=== PATIENT | female | born 1990 | race Caucasian/White ===

== ENCOUNTER 2017-10-29 17:51 | Emergency (ER) | payer OTHER ==
[~2017-10-29] VITALS: Ht 167.6 cm; Wt 54.4 kg
[~2017-10-29 17:51] MED LIST: ANTIVERT25 MG PO; CEPHALEXIN 500500 M3 PO; CIPRO500 MG PO; GLYCOPYRROLATE; HYDROCODON-ACE1 EAC7 PO; KEFLEX500 MG PO; MACROBID 100 M100 M1 PO; MEDROLDOSEPACK PO; NASONEX17 GM NASAL; NOHOMEMEDICATIONS; ONDANSETRON HCL4 M2 PO; PREDNISONE 10 M10 M1 PO; ROBAXIN500 MG PO; TRAMADOL 50 MG50 MG PO; ULTRAM 50MG TAB50 MG PO; ZOFRAN ODT4 MG PO; ZOFRAN4 MG PO; [UNRECOGNIZED DRUG - OTHER]; [UNRECOGNIZED DRUG - OTHER] PO
[2017-10-29 18:03] LABS: URINE BILIRUBIN NEGATIVE (Negative); URINE BLOOD NEGATIVE (Negative); URINE CLARITY CLEAR; URINE COLOR YELLOW; URINE GLUCOSE-RANDOM NEGATIVE (Negative); URINE KETONES NEGATIVE (Negative); URINE LEUKOCYTES-REFLEX NEGATIVE (Negative); URINE NITRITE-REFLEX NEGATIVE (Negative); URINE PROTEIN NEGATIVE (Negative); URINE SPECIFIC GRAVITY >= 1.030 (1.005-1.030)
[2017-10-29] MEDS ORDERED: CELEXA10 MG PO (18:03)
[2017-10-29 18:25] LABS: ABSOLUTE LYMPHOCYTES 1.8 thou/uL (0.8-5.3); ABSOLUTE MONOCYTES 0.5 thou/uL (0.0-1.2); ABSOLUTE NEUTROPHILS 2.8 thou/uL (1.6-8.1); BASOPHILS 0.2 %; EOSINOPHILS 0.4 %; HEMATOCRIT 38.9 % (37.0-47.0); LYMPHOCYTES 35.2 %; MCHC 33.3 g/dL (28.0-37.0); MCV 93.1 fL (80.0-100.0); MONOCYTES 9.3 %; MPV 8.8 fl. (7.2-11.1); NUCLEATED RBCS 0 /100WBC; PLATELET COUNT* 181 thou/uL (150-400); POLYS 54.9 %; RBC 4.18 mil/uL (4.20-5.00); RDW-CV 13.3 % (10.5-14.5); WBC 5.1 thou/uL (4.0-11.0)
[2017-10-29 18:33] LABS: CALCIUM 8.4 mg/dL (8.5-10.1); CREATININE 0.7 mg/dL (0.6-1.3); POTASSIUM 3.8 mmol/L (3.5-5.1)
[2017-10-29 18:37] LABS: ALBUMIN 3.7 g/dL (3.4-5.0); TOTAL BILIRUBIN 0.7 mg/dL (<0.1-1.0); TOTAL PROTEIN 7.6 g/dL (6.4-8.2)
[2017-10-29] MEDS ORDERED: ZOFRAN4 MG PO (19:43)
[2017-10-29] MEDS ORDERED: BENTYL 20 MG TA20 M1 PO (19:43)
[2017-10-29 19:53] VITALS: BP 110/67
== END 2017-10-29 19:54 | disposition home or self-care (01) ==
LOC: M.ERS 17:51
PROVIDERS: Nurse Practitioner Family
DX: R10.13 Epigastric pain (principal); G43.909 Migraine, unspecified, not intractable, without status migrainosus; Z88.6 Allergy status to analgesic agent; Z88.0 Allergy status to penicillin; Z88.5 Allergy status to narcotic agent; Z91.018 Allergy to other foods

== ENCOUNTER 2018-08-13 21:18 | Emergency (ER) | payer OTHER ==
[~2018-08-13] VITALS: Ht 167.6 cm; Wt 56.2 kg
[~2018-08-13 21:18] MED LIST changes: +BENTYL 20 MG TA20 M1 PO; +CELEXA10 MG PO
[2018-08-13] MEDS ORDERED: TRAMADOL 50 MG50 MG PO (21:35)
[2018-08-13 21:58] LABS: ABSOLUTE EOSINOPHILS 0.1 thou/uL (0.0-0.7); ABSOLUTE LYMPHOCYTES 2.1 thou/uL (0.8-5.3); ABSOLUTE MONOCYTES 0.4 thou/uL (0.0-1.2); ABSOLUTE NEUTROPHILS 3.3 thou/uL (1.6-8.1); BASOPHILS 0.2 %; HEMATOCRIT 39.6 % (37.0-47.0); LYMPHOCYTES 36.1 %; MCH 30.2 pg (26.0-34.0); MCHC 32.7 g/dL (28.0-37.0); MCV 92.1 fL (80.0-100.0); MPV 9.9 fl. (7.2-11.1); NUCLEATED RBCS 0 /100WBC; PLATELET COUNT* 183 thou/uL (150-400); POLYS 55.7 %; WBC 5.9 thou/uL (4.0-11.0)
[2018-08-13 22:05] LABS: CALCIUM 8.6 mg/dL (8.5-10.1); CREATININE 0.7 mg/dL (0.6-1.3); POTASSIUM 3.7 mmol/L (3.5-5.1)
[2018-08-13 22:15] LABS: ALBUMIN 3.5 g/dL (3.4-5.0); TOTAL BILIRUBIN 0.8 mg/dL (<0.1-1.0); TOTAL PROTEIN 7.2 g/dL (6.4-8.2); URINE BILIRUBIN NEGATIVE (Negative); URINE BLOOD NEGATIVE (Negative); URINE CLARITY CLEAR; URINE COLOR YELLOW; URINE GLUCOSE-RANDOM NEGATIVE (Negative); URINE KETONES NEGATIVE (Negative); URINE LEUKOCYTES-REFLEX NEGATIVE (Negative); URINE NITRITE-REFLEX NEGATIVE (Negative); URINE PROTEIN NEGATIVE (Negative)
[2018-08-14 01:09] VITALS: BP 102/56
== END 2018-08-14 01:12 | disposition home or self-care (01) ==
LOC: M.ERS 21:18
PROVIDERS: Family Medicine
DX: K59.00 Constipation, unspecified (principal); G89.18 Other acute postprocedural pain; G43.909 Migraine, unspecified, not intractable, without status migrainosus; Z88.6 Allergy status to analgesic agent; Z88.0 Allergy status to penicillin; Z91.018 Allergy to other foods; Z88.8 Allergy status to other drugs, medicaments and biological substances; Z90.49 Acquired absence of other specified parts of digestive tract

== ENCOUNTER 2019-03-04 14:27 | Emergency (ER) | payer BC, OTHER ==
[~2019-03-04] VITALS: Ht 170.2 cm; Wt 59.0 kg
[2019-03-04 15:13] LABS: URINE BILIRUBIN NEGATIVE (Negative); URINE BLOOD NEGATIVE (Negative); URINE CLARITY CLEAR; URINE COLOR YELLOW; URINE GLUCOSE-RANDOM NEGATIVE (Negative); URINE KETONES NEGATIVE (Negative); URINE LEUKOCYTES-REFLEX NEGATIVE (Negative); URINE NITRITE-REFLEX NEGATIVE (Negative); URINE PROTEIN NEGATIVE (Negative); URINE SPECIFIC GRAVITY 1.025 (1.005-1.030); URINE UROBILINOGEN 0.2 E.U./dl (0.2-1.0)
[2019-03-04 17:57] VITALS: BP 116/72
== END 2019-03-04 17:58 | disposition home or self-care (01) ==
LOC: M.ERS 14:27
PROVIDERS: Family Medicine
DX: O26.891 Other specified pregnancy related conditions, first trimester (principal); R10.32 Left lower quadrant pain; N80.9 Endometriosis, unspecified; Z88.0 Allergy status to penicillin; Z88.6 Allergy status to analgesic agent; Z88.5 Allergy status to narcotic agent; Z91.018 Allergy to other foods; Z88.8 Allergy status to other drugs, medicaments and biological substances; Z90.49 Acquired absence of other specified parts of digestive tract; Z3A.01 Less than 8 weeks gestation of pregnancy

== ENCOUNTER 2019-12-29 11:09 | Emergency (ER) | payer OTHER ==
[~2019-12-29] VITALS: Ht 167.6 cm; Wt 58.1 kg
[2019-12-29] MEDS ORDERED: ZYRTEC10 M4 PO (11:33)
[2019-12-29] MEDS ORDERED: PROAIR HFA8.5 GM INH (11:34)
[2019-12-29] MEDS ORDERED: ADVAIR 250-501 EACH INH (11:34)
[2019-12-29] MEDS ORDERED: FLONASE 0.05%50 MCG NARES (11:34)
[2019-12-29 12:37] LABS: INFLUENZA A ANTIGEN Negative (Negative); INFLUENZA B ANTIGEN Negative (Negative)
[2019-12-29 13:00] VITALS: BP 135/72
== END 2019-12-29 13:00 | disposition home or self-care (01) ==
LOC: M.ERS 11:09
PROVIDERS: Emergency Medicine Emergency Medical Services
DX: B34.9 Viral infection, unspecified (principal); Z20.828 Contact with and (suspected) exposure to other viral communicable diseases; J45.909 Unspecified asthma, uncomplicated; Z90.49 Acquired absence of other specified parts of digestive tract; Z90.89 Acquired absence of other organs; Z79.899 Other long term (current) drug therapy; Z88.0 Allergy status to penicillin; Z88.6 Allergy status to analgesic agent; Z88.8 Allergy status to other drugs, medicaments and biological substances

== ENCOUNTER 2020-04-02 11:48 | Emergency (ER) | payer OTHER ==
[~2020-04-02] VITALS: Ht 167.6 cm; Wt 59.0 kg
[~2020-04-02 11:48] MED LIST changes: +ADVAIR 250-501 EACH INH; +FLONASE 0.05%50 MCG NARES; +PROAIR HFA8.5 GM INH; +ZYRTEC10 M4 PO
[2020-04-02 12:11] LABS: URINE BILIRUBIN NEGATIVE (Negative); URINE BLOOD NEGATIVE (Negative); URINE CLARITY CLEAR; URINE COLOR YELLOW; URINE GLUCOSE-RANDOM NEGATIVE (Negative); URINE KETONES NEGATIVE (Negative); URINE LEUKOCYTES-REFLEX NEGATIVE (Negative); URINE NITRITE-REFLEX NEGATIVE (Negative); URINE PROTEIN NEGATIVE (Negative); URINE SPECIFIC GRAVITY >= 1.030 (1.005-1.030); URINE UROBILINOGEN 0.2 E.U./dl (0.2-1.0)
[2020-04-02 12:47] LABS: ABSOLUTE LYMPHOCYTES 1.7 thou/uL (0.8-5.3); ABSOLUTE MONOCYTES 0.4 thou/uL (0.0-1.2); ABSOLUTE NEUTROPHILS 3.2 thou/uL (1.6-8.1); BASOPHILS 0.4 %; EOSINOPHILS 0.4 %; HEMATOCRIT 40.2 % (37.0-47.0); HEMOGLOBIN 13.6 gm/dL (12.0-15.0); LYMPHOCYTES 31.9 %; MCH 30.9 pg (26.0-34.0); MCHC 33.9 g/dL (28.0-37.0); MCV 91.1 fL (80.0-100.0); MONOCYTES 7.1 %; MPV 9.8 fl. (7.2-11.1); NUCLEATED RBCS 0 /100WBC; PLATELET COUNT* 190 thou/uL (150-400); POLYS 60.2 %; RBC 4.42 mil/uL (4.20-5.00); RDW-CV 12.5 % (10.5-14.5); WBC 5.3 thou/uL (4.0-11.0)
[2020-04-02 12:54] LABS: CALCIUM 8.7 mg/dL (8.5-10.1); CREATININE 0.8 mg/dL (0.6-1.3); POTASSIUM 3.9 mmol/L (3.5-5.1)
[2020-04-02 12:59] LABS: ALBUMIN 3.7 g/dL (3.4-5.0); TOTAL BILIRUBIN 0.9 mg/dL (<0.1-1.0); TOTAL PROTEIN 7.4 g/dL (6.4-8.2)
[2020-04-02] MEDS ORDERED: BENTYL 10 MG CA10 M1 PO (14:19)
[2020-04-02 14:55] VITALS: BP 102/54
== END 2020-04-02 14:55 | disposition home or self-care (01) ==
LOC: M.ERS 11:48
PROVIDERS: Nurse Practitioner Family
DX: R10.32 Left lower quadrant pain (principal); Z32.02 Encounter for pregnancy test, result negative; J45.909 Unspecified asthma, uncomplicated; N80.9 Endometriosis, unspecified; Z88.6 Allergy status to analgesic agent; Z88.0 Allergy status to penicillin; Z91.018 Allergy to other foods; Z90.89 Acquired absence of other organs; Z90.49 Acquired absence of other specified parts of digestive tract

== ENCOUNTER 2020-05-30 19:06 | Emergency (ER) | payer OTHER ==
[~2020-05-30] VITALS: Ht 167.6 cm; Wt 58.4 kg
[~2020-05-30 19:06] MED LIST changes: +BENTYL 10 MG CA10 M1 PO
[2020-05-30] MEDS ORDERED: ACID REDUCER20 MG PO (19:24)
[2020-05-30] MEDS ORDERED: [UNRECOGNIZED DRUG - REMARK] (19:24)
[2020-05-30 20:29] LABS: URINE BILIRUBIN NEGATIVE (Negative); URINE BLOOD TRACE (Negative); URINE CLARITY CLEAR; URINE COLOR YELLOW; URINE GLUCOSE-RANDOM NEGATIVE (Negative); URINE KETONES NEGATIVE (Negative); URINE LEUKOCYTES-REFLEX NEGATIVE (Negative); URINE NITRITE-REFLEX NEGATIVE (Negative); URINE PROTEIN NEGATIVE (Negative); URINE SPECIFIC GRAVITY >= 1.030 (1.005-1.030); URINE UROBILINOGEN 0.2 E.U./dl (0.2-1.0)
[2020-05-30 21:28] VITALS: BP 121/70
== END 2020-05-30 21:28 | disposition home or self-care (01) ==
LOC: M.ERS 19:06
PROVIDERS: Emergency Medicine
DX: Z20.822 Contact with and (suspected) exposure to COVID-19 (principal); J45.909 Unspecified asthma, uncomplicated; N80.9 Endometriosis, unspecified; Z88.0 Allergy status to penicillin; Z88.5 Allergy status to narcotic agent; Z88.6 Allergy status to analgesic agent; Z91.018 Allergy to other foods; Z90.89 Acquired absence of other organs; Z90.49 Acquired absence of other specified parts of digestive tract

== ENCOUNTER 2021-02-14 19:22 | Emergency (ER) | payer OTHER ==
[~2021-02-14] VITALS: Ht 167.6 cm; Wt 58.1 kg
[~2021-02-14 19:22] MED LIST changes: +ACID REDUCER20 MG PO; +[UNRECOGNIZED DRUG - REMARK]
[2021-02-14 19:57] LABS: URINE BILIRUBIN NEGATIVE (Negative); URINE BLOOD TRACE (Negative); URINE CLARITY CLEAR; URINE COLOR YELLOW; URINE GLUCOSE-RANDOM NEGATIVE (Negative); URINE KETONES NEGATIVE (Negative); URINE LEUKOCYTES-REFLEX NEGATIVE (Negative); URINE NITRITE-REFLEX NEGATIVE (Negative); URINE PROTEIN NEGATIVE (Negative); URINE SPECIFIC GRAVITY >= 1.030 (1.005-1.030); URINE UROBILINOGEN 0.2 E.U./dl (0.2-1.0)
[2021-02-14] MEDS ORDERED: ZPAK PO (21:24)
[2021-02-14] MEDS ORDERED: CITRATE OF MAG296 M1 PO (21:35)
[2021-02-14 21:45] VITALS: BP 109/63
--- NOTE | 2021-02-15 10:56 | EKG ---
[place] [address] ELECTROCARDIOGRAM REPORT Name: KIARA HAWKINS Room: [facility]#: [id number] Admission: 02/14/21 Attend Phys: Discharge: 02/14/21 Date of : 86 Date of Service: 02/14/211934 Report #: [id number] THIS REPORT FOR: //name// [facility] ED Test Date: 2021-02-14 Test Time: 19:35:35 Pat Name: KIARA HAWKINS Department: Room: Gender: Certified Appliance Service Technician: : [id number] Requested By: Courtney Tillman Order Number: [id number] MD: Jairo Wilkerson Measurements Intervals [place] Rate: 76 P: -10 CO: 127 QRS: 33 QRSD: 90 T: 28 QT: 404 QTc: 455 Interpretive Statements Sinus rhythm Baseline wander in lead(s) V1,V2 No previous ECG available for comparison Electronically Signed On 02-15-2021 10:56:19 MOBILE ARCHITECT by Jairo Wilkerson [email or web address] <ELECTRONICALLY SIGNED> By: Jairo Wilkerson MD, [facility] 02/15/21 [id number] Jairo Wilkerson MD, [facility] /EPI
== END 2021-02-14 21:49 | disposition home or self-care (01) ==
LOC: M.ERS 19:22
PROVIDERS: Emergency Medicine
DX: J18.9 Pneumonia, unspecified organism (principal); K59.00 Constipation, unspecified; R07.89 Other chest pain; R35.0 Frequency of micturition; J45.909 Unspecified asthma, uncomplicated; Z90.49 Acquired absence of other specified parts of digestive tract; Z90.89 Acquired absence of other organs; Z79.899 Other long term (current) drug therapy; Z88.8 Allergy status to other drugs, medicaments and biological substances; Z88.0 Allergy status to penicillin; Z91.018 Allergy to other foods; Z88.6 Allergy status to analgesic agent